=== PATIENT | male | born 1975 | race Caucasian/White ===

== ENCOUNTER → 2017-09-07 07:59 | Outpatient (CLI) | payer BC, SELFPAY ==
[2017-09-07 10:22] LABS: BUN Creatinine Ratio 13.3 (6-22); Blood Urea Nitrogen 12 mg/dL (9-20); Calcium 9.8 mg/dL (8.4-10.2); Carbon Dioxide 31 mmol/L (22-32); Chloride 99 mmol/L (98-107); Estimated Glomerular Filt Rate > 60.0 mL/min (>60); Glucose 98 mg/dL (70-100); HEMOLYSIS < 15 (0-50); Potassium 4.5 mmol/L (3.4-5.1); Sodium 141 mmol/L (137-145)
[2017-09-07 10:54] LABS: Microalbumi Creatinin Ratio Ur 8.8 ug/mg CR (<30); Microalbumin Urine Random 0.7 mg/dL (0-1.6)
== END ==
PROVIDERS: PCP Family Medicine; Visit Provider Family Medicine
DX: I10 Essential (primary) hypertension (principal); E78.2 Mixed hyperlipidemia
CPT/HCPCS: 36415; 80048; 82043; 82570

== ENCOUNTER → 2019-10-02 16:36 | Outpatient (CLI) | payer BC, SELFPAY ==
[2019-10-02 17:52] LABS: Alanine Aminotransferase 36 IU/L (<50); Albumin 5.1 g/dL (3.5-5.0); Alkaline Phosphatase 68 U/L (38-126); Aspartate Aminotransferase 30 IU/L (17-59); BUN Creatinine Ratio 13.4 (6-22); Bilirubin Total 0.9 mg/dL (0.2-1.3); Blood Urea Nitrogen 11 mg/dL (9-20); Carbon Dioxide 28 mmol/L (22-32); Chloride 100 mmol/L (98-107); Cholesterol 176 mg/dL (140-199); Estimated Glomerular Filt Rate > 60.0 mL/min (>60); Globulin 2.6 g/dL (1.7-4.1); Glucose 86 mg/dL (70-100); HDL Cholesterol 55 mg/dL (40-60); HEMOLYSIS < 15 (0-50); LDL Cholesterol Calculated 65 mg/dL (<100); Potassium 4.4 mmol/L (3.4-5.1); Sodium 138 mmol/L (137-145); Total Protein 7.7 g/dL (6.3-8.2); Triglycerides 278 mg/dL (35-150)
[2019-10-02 18:35] LABS: Creatinine Urine Random 129.4 mg/dL
[2019-10-02 18:40] LABS: Microalbumi Creatinin Ratio Ur 4.6 ug/mg CR (<30); Microalbumin Urine Random < 0.6 mg/dL (0-1.6)
== END ==
PROVIDERS: Family Provider Family Medicine; PCP Family Medicine; Referring Provider Family Medicine; Visit Provider Family Medicine
DX: I10 Essential (primary) hypertension (principal)
CPT/HCPCS: 36415; 80053; 80061; 82043; 82570

== ENCOUNTER → 2020-12-24 07:57 | Outpatient (CLI) | payer BC, SELFPAY ==
[2020-12-24 08:56] LABS: Alanine Aminotransferase 32 IU/L (<50); Albumin 4.5 g/dL (3.5-5.0); Albumin Globulin Ratio 1.6 (1.0-2.8); Alkaline Phosphatase 41 U/L (38-126); Aspartate Aminotransferase 29 IU/L (17-59); BUN Creatinine Ratio 16.5 (6-22); Bilirubin Total 0.6 mg/dL (0.2-1.3); Blood Urea Nitrogen 15 mg/dL (9-20); Calcium 9.7 mg/dL (8.4-10.2); Carbon Dioxide 29 mmol/L (22-32); Chloride 101 mmol/L (98-107); Cholesterol 235 mg/dL (140-199); Estimated Glomerular Filt Rate > 60.0 mL/min (>60); Globulin 2.8 g/dL (1.7-4.1); Glucose 104 mg/dL (70-100); HDL Cholesterol 47 mg/dL (40-60); HEMOLYSIS < 15 (0-50); LDL Cholesterol Calculated 127 mg/dL (<100); Sodium 138 mmol/L (137-145); Total Protein 7.3 g/dL (6.3-8.2); Triglycerides 305 mg/dL (35-150)
[2020-12-24 09:01] LABS: Creatinine Urine Random 47.6 mg/dL
[2020-12-24 09:08] LABS: Microalbumin Urine Random < 0.6 mg/dL (0-1.6)
== END ==
PROVIDERS: Family Provider Family Medicine; PCP Family Medicine; Referring Provider Family Medicine; Visit Provider Family Medicine
DX: I10 Essential (primary) hypertension (principal)
CPT/HCPCS: 36415; 80053; 80061; 82043; 82570

== ENCOUNTER → 2022-06-08 07:07 | Outpatient (CLI) | payer BC, SELFPAY ==
[2022-06-08 08:32] LABS: Alanine Aminotransferase 34 IU/L (<50); Albumin 4.5 g/dL (3.5-5.0); Albumin Globulin Ratio 1.7 (1.0-2.8); Alkaline Phosphatase 43 U/L (38-126); Aspartate Aminotransferase 28 IU/L (17-59); BUN Creatinine Ratio 12.2 (6-22); Bilirubin Total 0.6 mg/dL (0.2-1.3); Blood Urea Nitrogen 10 mg/dL (9-20); Calcium 9.2 mg/dL (8.4-10.2); Carbon Dioxide 29 mmol/L (22-32); Chloride 101 mmol/L (98-107); Cholesterol 233 mg/dL (140-199); Estimated Glomerular Filt Rate > 60 mL/min (>60); Globulin 2.7 g/dL (1.7-4.1); Glucose 101 mg/dL (70-100); HDL Cholesterol 51 mg/dL (40-60); HEMOLYSIS < 15 (0-50); LDL Cholesterol Calculated 121 mg/dL (<100); Potassium 4.2 mmol/L (3.4-5.1); Sodium 137 mmol/L (137-145); Total Protein 7.2 g/dL (6.3-8.2); Triglycerides 306 mg/dL (35-150)
[2022-06-08 10:19] LABS: Creatinine Urine Random 38.7 mg/dL
[2022-06-08 10:23] LABS: Microalbumin Urine Random < 0.6 mg/dL (0-1.6)
[2022-06-09 15:51] LABS: x Labcorp Estim. Avg Glu (eAG) 117 mg/dL (.); x Labcorp Hemoglobin A1c 5.7 % (4.8-5.6)
== END ==
PROVIDERS: Family Provider Family Medicine; PCP Family Medicine; Referring Provider Family Medicine; Visit Provider Family Medicine
DX: I10 Essential (primary) hypertension (principal)
CPT/HCPCS: 36415; 80053; 80061; 82043; 82570; 83036

== ENCOUNTER 2023-02-23 06:40 | Day surgery (SDC) | payer BC, SELFPAY ==
--- NOTE | 2023-02-23 | PATH_ITS ---
[facility] Accession Number: [id number] No. of containers..03 Tissue . 01 Material submitted: . PART A: colon - TRANSVERSE POLYP PART B: sigmoid colon - SIGMOID POLYP PART C: sigmoid colon - BASE OF SIGMOID POLYP . 01 Diagnosis: A. Colon, transverse polyp, biopsy: - Tubular adenoma. -- B. Colon, sigmoid polyp, biopsy: - Tubular adenoma with focal high-grade dysplasia. - Negative for invasive carcinoma. -- C. Colon, base of sigmoid polyp, biopsy: - Benign colonic mucosa. - Negative for dysplasia or malignancy. TXN 02/27/2023 1632 Local . 01 Electronically signed: . Tawfeq MD Nick, Pathologist NPI- [id number] . 01 Gross description: . Part A: TRANSVERSE POLYP: Received in formalin is 2 fragment(s) of lowery, soft tissue measuring 0.3 x 0.2 x 0.2 cm to 0.2 x 0.1 x 0.1 cm submitted entirely in 1 cassette(s) Part B: SIGMOID POLYP: Received in formalin is 1 fragment(s) of lowery, soft tissue measuring 0.9 x 0.6 x 0.6 cm which is bisected and submitted entirely in 1 cassette(s) Part C: BASE OF SIGMOID POLYP: Received in formalin is 3 fragment(s) of lowery, soft tissue measuring 0.3 x 0.2 x 0.2 cm to 0.2 x 0.2 x 0.2 cm submitted entirely in 1 cassette(s) /AAY 02/25/2023 0648 Local . 01 Pathologist provided ICD-10: Z12.11 . 01 CPT . 123212, 144642, 532476 Specimen Comment: A courtesy copy of this report has been sent to [phone] Performed at: 01 [facility] [address], [place], [place] [id number] MD Jaspreet Barger MD Phone: [phone]
[2023-02-23 06:59] VITALS: BP 140/95; PULSE 78; RESP 11; TEMP 36.7; O2SAT 98
[2023-02-23] MEDS: LACTATED RINGERS 1,000 ML 42 ML IV (07:10)
--- NOTE | 2023-02-23 07:44 | P.HP_ITS ---
History of Present Illness History of Present Illness Date Patient Seen: 02/23/23 Time Patient Seen: 07:44 Chief complaint: SDC Narrative: Javed Is a 47-year-old man who is here for a colonoscopy. He has never had 1 before. No known family history of colon cancer. [facility] Medical History Essential hypertension (04/12/17) Mixed hyperlipidemia (04/12/17) Surgical History No history of previous surgery (12/28/15) Family History Father Age: 74 Cancer Grandfather Heart disease Essential hypertension Social History marital status: Smoking Status: Former smoker alcohol intake: current substance use type: does not use Meds Home Medications and Allergies Home Medications Medication Instructions Recorded Confirmed Type metoprolol tartrate 50 mg tablet 50 mg PO BID #180 tabs 01/02/23 02/23/23 Rx Allergies Allergy/AdvReac Type Severity Reaction Status Date / Time No Known Allergies Allergy Uncoded 02/23/23 06:59 Exam Vital Signs (past 8 hours): - 02/23/23 06:59 Temperature 98.1 F Pulse Rate 78 Respiratory Rate 11 L Blood Pressure 140/95 H Pulse Oximetry 98 Oxygen Delivery Method Room Air Oxygen Delivery Method Room Air Const General: healthy appearing and No acute distress Resp Effort & Inspection: normal respiratory effort Assessment & Plan Assessment and plan (1) Colon cancer screening: Status: Acute Plan We reviewed the risks benefits and rationale for colonoscopy for colon cancer screening and he would like to proceed.
--- NOTE | 2023-02-23 08:18 | PM.OP.COLON ---
Operative Date/Time/Diagnoses Date of procedure: 02/23/23 Time of procedure: 08:18 Pre-op diagnosis: Colon cancer screening Post-op diagnosis: same Procedure & Clinicians Study performed: Colonoscopy Same procedure as scheduled: Yes Surgeon: Franck Soares Procedure Notes Procedure in detail: Surgeon: Franck Soares MD Anesthesia: Monika Bryan CRNA Procedure: The patient was brought to the endoscopy suite, placed in left lateral decubitus position. The patient was connected to monitoring devices. A time-out was performed. Sedation was administered. Once the patient was adequately sedated, a digital rectal exam was performed and was normal. The scope was then inserted and advanced to the cecum where the appendiceal orifice was identified and photographed. The scope was then slowly withdrawn over greater than 6 minutes. The mucosa was thoroughly inspected. There was a 5 mm polyp in the mid transverse colon removed with a Jumbo cold forceps. There was a 1.2 cm polyp near the rectosigmoid junction at approximately 18 cm from the anal verge. It appeared to be on a stalk. Polyp was removed with a hot snare. The mucosa around the base of the polyp was somewhat irregular and was biopsied with the Jumbo forceps and sent separately as ?sigmoid polyp base?. The scope was retroflexed in the rectum. No other abnormalities were seen. The scope was straightened and removed. The patient was awakened and brought to recovery. Scope withdrawal time: 19 minutes Sedation time: 24 minutes EBL: 5 mL Findings: 5 mm transverse colon polyp and 1.2 cm rectosigmoid polyp Post-procedure Disposition: PACU
[2023-02-23 08:20] VITALS: BP 114/83; PULSE 69; RESP 11; TEMP 37; O2SAT 96
[2023-02-23 08:25] VITALS: BP 126/87; PULSE 65; RESP 12; TEMP 36.9; O2SAT 95
[2023-02-23 08:29] VITALS: BP 125/89; PULSE 65; RESP 11; TEMP 36.9; O2SAT 99
[2023-02-23 08:39] VITALS: BP 124/85; PULSE 65; RESP 12; TEMP 36.9; O2SAT 99
== END 2023-02-23 08:43 | disposition home or self-care (01) ==
PROVIDERS: Family Provider Family Medicine; PCP Family Medicine; Referring Provider Surgery; Visit Provider Surgery
PROC: 0DJD8ZZ Inspection of Lower Intestinal Tract, Via Natural or Artificial Opening Endoscopic (ICD-10-PCS; CPT 45378; principal; 2023-02-23 07:45)
DX: Z12.11 Encounter for screening for malignant neoplasm of colon (principal); D12.3 Benign neoplasm of transverse colon; D12.5 Benign neoplasm of sigmoid colon; K63.5 Polyp of colon
CPT/HCPCS: 45385; 45380; J2704

== ENCOUNTER → 2023-12-07 07:02 | Outpatient (CLI) | payer BC, SELFPAY ==
[2023-12-07 08:38] LABS: Alanine Aminotransferase 34 IU/L (<50); Albumin 4.6 g/dL (3.5-5.0); Albumin Globulin Ratio 1.8 (1.0-2.8); Alkaline Phosphatase 44 U/L (38-126); Aspartate Aminotransferase 32 IU/L (17-59); BUN Creatinine Ratio 14.1 (6-22); Bilirubin Total 0.6 mg/dL (0.2-1.3); Blood Urea Nitrogen 11 mg/dL (9-20); Calcium 9.8 mg/dL (8.4-10.2); Carbon Dioxide 26 mmol/L (22-32); Chloride 104 mmol/L (98-107); Cholesterol 233 mg/dL (140-199); Estimated Glomerular Filt Rate > 60 mL/min (>60); Globulin 2.6 g/dL (1.7-4.1); Glucose 100 mg/dL (70-100); HDL Cholesterol 48 mg/dL (40-60); HEMOLYSIS < 15 (0-50); LDL Cholesterol Calculated 129 mg/dL (<100); Potassium 4.2 mmol/L (3.4-5.1); Sodium 138 mmol/L (137-145); Total Protein 7.2 g/dL (6.3-8.2); Triglycerides 280 mg/dL (35-150)
[2023-12-07 10:42] LABS: Creatinine Urine Random 73.05 mg/dL
[2023-12-07 10:46] LABS: Microalbumin Urine Random < 0.6 mg/dL (0-1.6)
== END ==
PROVIDERS: Family Provider Family Medicine; PCP Family Medicine; Referring Provider Family Medicine; Visit Provider Family Medicine
DX: I10 Essential (primary) hypertension (principal)
CPT/HCPCS: 36415; 80053; 80061; 82043; 82570

== ENCOUNTER → 2024-04-10 07:27 | Outpatient (CLI) | payer BC, SELFPAY ==
[2024-04-10 09:15] LABS: Cholesterol 180 mg/dL (140-199); HDL Cholesterol 53 mg/dL (40-60); LDL Cholesterol Calculated 72 mg/dL (<100); Triglycerides 273 mg/dL (35-150)
== END ==
PROVIDERS: Family Provider Family Medicine; PCP Family Medicine; Referring Provider Family Medicine; Visit Provider Family Medicine
DX: E78.2 Mixed hyperlipidemia (principal)
CPT/HCPCS: 36415; 80061